=== PATIENT | male | born 1985 | race African-American/Black ===

== ENCOUNTER 2016-12-06 18:25 | Emergency (ER) | payer OTHER ==
[~2016-12-06] VITALS: Ht 182.9 cm; Wt 98.7 kg
[2016-12-06 18:37] VITALS: BP 144/78
--- NOTE | 2016-12-06 19:31 | NUR ---
PATIENT TO ER BED 5.
--- NOTE | 2016-12-06 19:41 | NUR ---
31/M c/o left testicular swelling and penile discharge for the past three days. Denies fever or chills. Denies N/V/D. Pt c/o 06/07 pain. AOX4, ambulatory with steady gait. VSS. Warm blanket provided. Placed in position of comfort. All needs addressed at this time.
--- NOTE | 2016-12-06 19:45 | NUR ---
Patient being evaluated by physician at bedside.
[2016-12-06] MEDS ORDERED: cefTRIAXone 250 MG in LIDOCAINE 1% ED 0.9 ML IM ONE (19:55)
[2016-12-06] MEDS ORDERED: AZITHROMYCIN 250 MG TAB PO ONE (19:55)
--- NOTE | 2016-12-06 20:13 | NUR ---
Ultrasound at bedside.
[2016-12-06 20:26] LABS: BILIRUBIN,URINE NEGATIVE (NEGATIVE); BLOOD, URINE NEGATIVE (NEGATIVE); COLOR,URINE YELLOW (YELLOW); LEUKOCYTE ESTERASE ,URINE 1+ (NEGATIVE); NITRITE, URINE NEGATIVE (NEGATIVE); UGLUCOSE NEGATIVE (NEGATIVE)
[2016-12-06 20:30] LABS: APPEARANCE,URINE SLIGHTLY HAZY (CLEAR)
[2016-12-06 20:31] LABS: RBC,URINE 0-5 (RARE) /HPF (0-5); WBC,URINE 60-80 /HPF (0-5)
--- NOTE | 2016-12-06 21:18 | NUR ---
Patient resting comfortably in bed.VSS.
[2016-12-06 21:31] VITALS: BP 120/64
== END 2016-12-06 21:31 | disposition home or self-care (01) ==
LOC: MED 18:25
DX: N34.2 Other urethritis (principal); R03.0 Elevated blood-pressure reading, without diagnosis of hypertension; F17.210 Nicotine dependence, cigarettes, uncomplicated; F12.90 Cannabis use, unspecified, uncomplicated
CPT/HCPCS: 36415; 76870; 81001; 87086; 96372; 99285; J0696; J2001; Q0092

== ENCOUNTER 2017-03-09 13:06 | Emergency (ER) | payer OTHER ==
[~2017-03-09] VITALS: Ht 185.4 cm; Wt 100.7 kg
--- NOTE | 2017-03-09 13:06 | NUR ---
Patient BIBA BLS, transferred to bed 8. RN evaluating patient at bedside.
[2017-03-09 13:10] VITALS: BP 139/83
--- NOTE | 2017-03-09 13:21 | NUR ---
DR. BENAVIDES AT BEDSIDE ASSESSING PATIENT
[2017-03-09] MEDS ORDERED: ALBUTEROL SULFATE/IPRATROPIU 3 ML SOL IH ONE (13:40)
[2017-03-09] MEDS ORDERED: DEXAMETHASONE 10 MG/ML VIAL IM ONE (13:40)
[2017-03-09] MEDS ORDERED: CLINDAMYCIN 600 MG/4 ML VIAL IM ONE (13:40)
--- NOTE | 2017-03-09 13:58 | NUR ---
PATIENT PRESENTS TO ED WITH SWOLLEN AND REDNESS. NO RESP. DISTRESS. NO HX; DENIES N/V/D; SKIN IS PINK/WARM/DRY; AAOX4 WITH EVEN AND STEADY GAIT; HR EVEN AND REGULAR; PT DENIES ANY FEVER, CP, SOB, OR COUGH AT THIS TIME; PATIENT STATES PAIN OF 10/10 AT THIS TIME;PATIENT POSITIONED FOR COMFORT; HOB ELEVATED; BEDRAILS UP X2; BED DOWN. ER MD MADE AWARE OF PT STATUS.
--- NOTE | 2017-03-09 14:02 | NUR ---
ADMITTING DX: SWOLLEN TONSIL HX: DENIES SOB, ASTHMA AND COPD HFW POSITION SKIN TONE PINK AWAKE AND ALERT EDUCATION PROVIDED TO PATIENT WITH ACKNOWLEDGEMENT ON HHN THERAPY AND RESPIRATORY DRUG HHN THERAPY GIVEN ORDERED ENCOURAGED FOR DEEP BREATHING DURING THERAPY TOLERATED WELL WITHOUT ADVERSE REACTIONS NOTED
[2017-03-09 15:21] VITALS: BP 139/83
--- NOTE | 2017-03-09 15:21 | NUR ---
Patient discharged with v/s stable. Written and verbal after care instructions given and explained. Patient alert, oriented and verbalized understanding of instructions. Ambulatory with steady gait. All questions addressed prior to discharge. ID band removed. Patient advised to follow up with PMD. Rx of PREDNISONE AND CLINDAMYCIN given. Patient educated on indication of medication including possible reaction and side effects. Opportunity to ask questions provided and answered.
== END 2017-03-09 15:21 | disposition home or self-care (01) ==
LOC: MED 13:06
DX: J03.90 Acute tonsillitis, unspecified (principal)
CPT/HCPCS: 94640; 96372; 99284; J1100; J3490; J7620

== ENCOUNTER 2017-05-01 14:36 | Emergency (ER) | payer OTHER ==
[~2017-05-01] VITALS: Ht 185.4 cm; Wt 100.7 kg
[2017-05-01 14:58] VITALS: BP 134/61
--- NOTE | 2017-05-01 15:38 | NUR ---
PATIEN AMBULATED TO BED 1
--- NOTE | 2017-05-01 15:48 | NUR ---
patient is a 31 yo male bib self for right sided numbness that comes and goes worsening over last week. awake and alert on arrival able to ambulate no other complaints.
[2017-05-01 16:57] VITALS: BP 128/64
== END 2017-05-01 16:58 | disposition home or self-care (01) ==
LOC: MED 14:36
DX: M79.1 Myalgia (principal); R20.0 Anesthesia of skin
CPT/HCPCS: 82948; 99283

== ENCOUNTER 2017-09-18 01:04 | Emergency (ER) | payer OTHER ==
[~2017-09-18] VITALS: Ht 185.4 cm; Wt 102.1 kg
[2017-09-18 01:08] VITALS: BP 142/77
--- NOTE | 2017-09-18 01:10 | NUR ---
TO BED# 9 AMB, REPORT GIVEN TO CHU KATHLEEN.
--- NOTE | 2017-09-18 01:13 | NUR ---
SORE THROAT AND PAIN ON SWALLOWING X 2 DAYS. TONSILS INFLAMED WITH EXUDATE BILAT. PAIN IS 10/10 WHEN SWALLOWING. NAD, WILL CONTINUE TO MONITOR CLOSELY.
[2017-09-18] MEDS ORDERED: KETOROLAC 30 MG/ML VIAL IM ONE (01:25)
[2017-09-18] MEDS ORDERED: AMOXICILLIN 500 MG CAP PO ONE (01:25)
[2017-09-18] MEDS ORDERED: DEXAMETHASONE 10 MG/ML VIAL IM ONE (01:25)
--- NOTE | 2017-09-18 01:47 | NUR ---
Patient discharged with v/s stable. Written and verbal after care instructions given and explained. Patient alert, oriented and verbalized understanding of instructions. Ambulatory with steady gait. All questions addressed prior to discharge. ID band removed. Patient advised to follow up with PMD. Rx of PREDNISONE, AMOXICILLIN given. Patient educated on indication of medication including possible reaction and side effects. Opportunity to ask questions provided and answered.
[2017-09-18 01:48] VITALS: BP 142/77
== END 2017-09-18 01:47 | disposition home or self-care (01) ==
LOC: MED 01:04
DX: J02.9 Acute pharyngitis, unspecified (principal)
CPT/HCPCS: 96372; 99284; J1100; J1885

== ENCOUNTER 2018-09-20 04:11 | Emergency (ER) | payer OTHER ==
[~2018-09-20] VITALS: Ht 182.9 cm; Wt 93.0 kg
[2018-09-20 04:26] VITALS: BP 146/88
--- NOTE | 2018-09-20 04:30 | NUR ---
33 YO M BIB SELF PRESENTS TO ED C/O CHEST CONGESTION AND PRODUCTIVE COUGH WITH GREEN MUCUS X 3 WEEKS. DENIES FEVER, BUT STATES HE HAS HOT/COLD FLASHES. DENIES NVD. MOIST COUGH HEARD. PMH-- DENIES
[2018-09-20 04:50] VITALS: BP 146/88
--- NOTE | 2018-09-20 04:50 | NUR ---
Patient discharged with v/s stable. Written and verbal after care instructions given and explained by Dr. Lang. Patient alert, oriented and verbalized understanding of instructions. Ambulatory with steady gait. All questions addressed prior to discharge. ID band removed. Patient advised to follow up with PMD. Rx of Robitussin and Augmentin given. Patient educated on indication of medication including possible reaction and side effects. Opportunity to ask questions provided and answered.
== END 2018-09-20 04:50 | disposition home or self-care (01) ==
LOC: MED 04:11
DX: J20.9 Acute bronchitis, unspecified (principal)
CPT/HCPCS: 99283

== ENCOUNTER 2021-09-04 06:20 | Emergency (ER) | payer OTHER ==
[~2021-09-04] VITALS: Ht 185.4 cm; Wt 84.1 kg
[2021-09-04 06:40] VITALS: BP 116/75
--- NOTE | 2021-09-04 06:45 | NUR ---
PT TAKEN TO BED 5
--- NOTE | 2021-09-04 06:47 | NUR ---
Dr. Calderon examining patient.
[2021-09-04] MEDS ORDERED: IBUPROFEN CHILDRENS 100 MG/5 ML UDC PO ONE (06:50)
[2021-09-04] MEDS ORDERED: DEXAMETHASONE 10 MG/ML VIAL IM ONE (06:50)
--- NOTE | 2021-09-04 07:15 | NUR ---
RECEIVED REPORT FROM RENATO CARABALLO FOR TRANSFER OF CARE.
--- NOTE | 2021-09-04 07:44 | NUR ---
Pt report given to FRANNIE BOSTON. Transfer of care at this time.
--- NOTE | 2021-09-04 08:18 | NUR ---
OBTAINED STREP CULTURES AND WALKED TO LAB. HANDED TO CPT. DEL
[2021-09-04] MEDS ORDERED: PENI500T20 PO (08:23)
[2021-09-04] MEDS ORDERED: IBUP-1842 PO (08:23)
--- NOTE | 2021-09-04 08:47 | NUR ---
Patient discharged with v/s stable. Written and verbal after care instructions given. Patient alert, oriented and verbalized understanding of instructions. Ambulatory with steady gait. All questions addressed prior to discharge. ID band removed. Patient advised to follow up with PMD. Rx of PENICILLIN V POTASSIUM AND IBUPROFEN given. Opportunity to ask questions provided and answered.
--- NOTE | 2021-09-04 08:55 | NUR ---
The patient's care was reviewed and supervised by Nilam Weir RN.
== END 2021-09-04 08:47 | disposition home or self-care (01) ==
LOC: MED 06:20
DX: J02.0 Streptococcal pharyngitis (principal); R50.9 Fever, unspecified; Z79.899 Other long term (current) drug therapy
CPT/HCPCS: 87081; 96372; 99283; J1100

== ENCOUNTER 2023-03-15 05:12 | Emergency (ER) | payer OTHER ==
[~2023-03-15] VITALS: Ht 185.4 cm; Wt 90.7 kg
[~2023-03-15 05:12] MED LIST: IBUP-1842 PO; PENI500T20 PO
[2023-03-15 05:33] VITALS: BP 144/70; PULSE 103; RESP 15; TEMP 98.6; O2SAT 100
[2023-03-15] MEDS ORDERED: BENZ-300 PO (06:40)
[2023-03-15] MEDS ORDERED: IBUP-1842 PO (06:40)
[2023-03-15] MEDS ORDERED: AMOX1TAB8 PO (06:40)
== END 2023-03-15 06:56 | disposition home or self-care (01) ==
LOC: MED 05:12
DX: J03.90 Acute tonsillitis, unspecified (principal); Z79.899 Other long term (current) drug therapy
CPT/HCPCS: 99282